=== PATIENT | male | born 1935 | race Two or more races ===

== ENCOUNTER 2023-08-26 22:25 | Inpatient (IN) | payer OTHER ==
[~2023-08-26] VITALS: Ht 167.6 cm; Wt 57.0 kg
[2023-08-26 22:45] VITALS: PULSE 102; RESP 18; O2SAT 99
[2023-08-26 23:23] LABS: Basophils # (auto) 0.1 10 ^3/uL (0-0.2); Hemoglobin 12.9 g/dL (13.5-17.5); Monocytes # (auto) 0.7 10 ^3/uL (0-1.3); Neutrophils # (auto) 7.7 10 ^3/uL (1.6-8.6)
[2023-08-26 23:25] LABS: Basophils % (auto) 1.2 % (0.0-2.0); Eosinophils # (auto) 0.1 10 ^3/uL (0-0.8); Eosinophils % (auto) 1.4 % (0.0-7.0); Hematocrit 37.1 % (41.0-53.0); Lymphocytes # (auto) 1.2 10 ^3/uL (0.4-5.4); Lymphocytes % (auto) 12.3 % (10.0-50.0); Mean Corpuscular Hemoglobin 32.1 pg (28.0-32.0); Mean Corpuscular Hgb Conc. 34.8 g/dL (32.0-36.0); Mean Corpuscular Volume 92.2 fL (80.0-100.0); Monocytes % (auto) 6.8 % (0.0-12.0); Neutrophils % (auto) 78.3 % (37.0-80.0); Red Blood Cells 4.02 10^6/uL (4.5-5.90); Red Cell Distribution Width 13.6 % (11.8-14.3); White Blood Cell 9.9 10^3/uL (4.4-10.8)
[2023-08-26 23:42] LABS: Alanine Aminotransferase 43 U/L (7-40); Albumin 3.4 g/dL (3.2-4.8); Alkaline Phosphatase 96 U/L (46-116); Anion Gap 9 (5-15); Aspartate Aminotransferase 28 U/L (13-40); Blood Alcohol 3.2 mg/dL (<10); Blood Urea Nitrogen 29 mg/dL (9-23); Calcium 8.7 mg/dL (8.5-10.1); Carbon Dioxide 23 mmol/L (20-30); Chloride 108 mmol/L (98-107); Glucose 90 mg/dL (74-106); Sodium 140 mmol/L (136-145)
[2023-08-26 23:43] LABS: Total Protein 5.7 g/dL (5.7-8.2)
[2023-08-27] MEDS: ENOXAPARIN SOD 40 MG/0.4 ML SYRINGE SC ONE (01:17)
[2023-08-27] MEDS: LORazepam 2MG/ML-1ML VIAL ONE (02:28)
[2023-08-27] MEDS: LORazepam 2MG/ML-1ML VIAL IV ONE (02:41)
[2023-08-27] MEDS: IOHEXOL 350 MG/ML 100ML IJ ONE (03:04)
[2023-08-27 08:00] VITALS: PULSE 55; RESP 12; O2SAT 99
[2023-08-27] MEDS ORDERED: DOCUSATE SOD 100 MG CAP PO PRN (10:45)
[2023-08-27] MEDS: ENOXAPARIN SOD 40 MG/0.4 ML SYRINGE SC SCH (11:46)
[2023-08-27] MEDS: SODIUM CHLORIDE 0.9% 1,000 ML IV SCH (11:46)
[2023-08-27 14:02] LABS: Urine Bacteria None Seen /hpf (None Seen)
[2023-08-27 14:21] LABS: Urine Blood 2+ /uL (Negative); Urine Clarity Clear (Clear); Urine Color Yellow (Yellow); Urine Mucus FEW (None Seen); Urine Protein, UAD TRACE (Negative); Urine Urobilinogen Normal (Negative); Urine WBC 10 /hpf (0 - 3); Urine pH 5.5 (5.0-9.0)
[2023-08-27 14:23] LABS: Urine Specific Gravity > 1.050 (1.001-1.035)
[2023-08-27 19:30] VITALS: PULSE 70; RESP 19; O2SAT 100
[2023-08-27] MEDS: PIPERACILLIN-TAZOB 3.375GM 100 ML IV ONE (20:22)
[2023-08-27] MEDS: LORazepam 2MG/ML-1ML VIAL IV PRN (23:28)
[2023-08-28] MEDS: MELATONIN 5 MG TAB PO SCH (00:43)
[2023-08-28 04:45] LABS: Basophils # (auto) 0.1 10 ^3/uL (0-0.2); Eosinophils # (auto) 0.2 10 ^3/uL (0-0.8); Hemoglobin 12.3 g/dL (13.5-17.5); Lymphocytes % (auto) 8.9 % (10.0-50.0); Monocytes # (auto) 0.7 10 ^3/uL (0-1.3)
[2023-08-28 04:46] LABS: Basophils % (auto) 0.9 % (0.0-2.0); Eosinophils % (auto) 1.9 % (0.0-7.0); Hematocrit 36.8 % (41.0-53.0); Mean Corpuscular Hemoglobin 31.4 pg (28.0-32.0); Mean Corpuscular Hgb Conc. 33.3 g/dL (32.0-36.0); Mean Corpuscular Volume 94.3 fL (80.0-100.0); Neutrophils # (auto) 9.3 10 ^3/uL (1.6-8.6); Neutrophils % (auto) 82.3 % (37.0-80.0); Nucleated Red Blood Cells % 0.1 %; Red Cell Distribution Width 14.1 % (11.8-14.3); White Blood Cell 11.3 10^3/uL (4.4-10.8)
[2023-08-28 05:02] LABS: Alanine Aminotransferase 37 U/L (7-40); Albumin 3.1 g/dL (3.2-4.8); Alkaline Phosphatase 92 U/L (46-116); Aspartate Aminotransferase 22 U/L (13-40); BUN/Creatinine Ratio 21.2 (10.0-20.0); Blood Urea Nitrogen 22 mg/dL (9-23); Calcium 8.4 mg/dL (8.7-10.4); Carbon Dioxide 18 mmol/L (20-30); Glucose 87 mg/dL (74-106)
[2023-08-28 05:03] LABS: Bilirubin, Total 0.9 mg/dL (0.2-1.0); Total Protein 5.4 g/dL (5.7-8.2)
[2023-08-28 05:20] LABS: Anion Gap 13 (5-15); Chloride 108 mmol/L (98-107); Potassium 4.1 mmol/L (3.5-5.1); Sodium 139 mmol/L (136-145)
[2023-08-28] MEDS: PIPERACILLIN-TAZOB 3.375GM 100 ML IV SCH (05:32)
[2023-08-28 07:35] VITALS: PULSE 57; RESP 15; O2SAT 100
[2023-08-28 12:00] VITALS: BP 135/97; PULSE 59; RESP 18; TEMP 97.8; O2SAT 99
[2023-08-28] MEDS ORDERED: APIX2.5T PO (16:05)
[2023-08-28] MEDS ORDERED: FINA5TAB4 PO (16:05)
[2023-08-28] MEDS ORDERED: CHOL400C7 PO (16:05)
[2023-08-28] MEDS ORDERED: LISI20TA56 PO (16:05)
[2023-08-28] MEDS ORDERED: HYDR-2792 PO (16:05)
[2023-08-28] MEDS ORDERED: ATOR20TA50 PO (16:05)
[2023-08-28] MEDS ORDERED: LEVO50TA7 PO (16:05)
[2023-08-28] MEDS ORDERED: TAMS0.4C36 PO (16:05)
[2023-08-28 17:00] VITALS: BP 151/75; PULSE 71; RESP 18; TEMP 97.5; O2SAT 100
[2023-08-28] MEDS ORDERED: ACETAMINOPHEN 650 mg PER 20.3 mL UD PO PRN (19:00)
[2023-08-28 20:00] VITALS: PULSE 81; RESP 16; TEMP 36.4
[2023-08-28] MEDS: HALOPERIDOL LACTATE 5 MG/ML INJ VIAL IM PRN (20:45)
[2023-08-28 22:00] VITALS: BP 154/60; PULSE 85; RESP 16; O2SAT 98
[2023-08-28] MEDS: diphenhdrAMINE HCL 50 MG/1 ML VL IM PRN (23:26)
[2023-08-29 07:21] LABS: Chloride 111 mmol/L (98-107); Potassium 3.8 mmol/L (3.5-5.1); Sodium 140 mmol/L (136-145)
[2023-08-29 07:22] LABS: Anion Gap 9 (5-15); Carbon Dioxide 20 mmol/L (20-30)
[2023-08-29 07:23] LABS: Calcium 8.5 mg/dL (8.7-10.4)
[2023-08-29 07:28] LABS: BUN/Creatinine Ratio 16.5 (10.0-20.0); Blood Urea Nitrogen 18 mg/dL (9-23); Glucose 96 mg/dL (74-106)
[2023-08-29 07:29] LABS: Basophils # (auto) 0.1 10 ^3/uL (0-0.2); Basophils % (auto) 0.6 % (0.0-2.0); Eosinophils # (auto) 0.1 10 ^3/uL (0-0.8); Hematocrit 33.8 % (41.0-53.0); Hemoglobin 11.3 g/dL (13.5-17.5); Lymphocytes # (auto) 0.8 10 ^3/uL (0.4-5.4); Mean Corpuscular Hemoglobin 31.9 pg (28.0-32.0); Mean Corpuscular Hgb Conc. 33.5 g/dL (32.0-36.0); Mean Corpuscular Volume 95.2 fL (80.0-100.0); Monocytes # (auto) 0.6 10 ^3/uL (0-1.3); Monocytes % (auto) 6.9 % (0.0-12.0); Neutrophils # (auto) 6.7 10 ^3/uL (1.6-8.6); Neutrophils % (auto) 81.5 % (37.0-80.0); Red Blood Cells 3.55 10^6/uL (4.5-5.90); White Blood Cell 8.2 10^3/uL (4.4-10.8)
[2023-08-29 08:10] VITALS: PULSE 59
[2023-08-29 09:00] VITALS: BP 137/61; PULSE 120; RESP 15; TEMP 97.8; O2SAT 98
[2023-08-29 13:00] VITALS: BP 138/70; PULSE 67; RESP 15; TEMP 98; O2SAT 99
[2023-08-29 16:55] VITALS: BP 147/76; PULSE 65; RESP 15; TEMP 97.8; O2SAT 100
[2023-08-29 20:00] VITALS: BP 141/76; PULSE 65; PULSE 87; RESP 16; TEMP 97.8; O2SAT 100
[2023-08-29 21:47] VITALS: BP 160/77; PULSE 87; RESP 18; TEMP 98.9; O2SAT 96
[2023-08-30] VITALS (8 sets, daily range): BP systolic 125–150; BP diastolic 73–86; PULSE 66–86; RESP 16–19; TEMP 37.3; O2SAT 94–97
[2023-08-30] MEDS ORDERED: VANCOMYCIN PER PHARMACY 0 MG IV SCH (10:00)
[2023-08-30] MEDS: VANCOMYCIN 1GM/200ML 200 ML IV ONE (11:45)
[2023-08-30] MEDS: MORPHINE SULFATE INJ 2 MG/ml SYRG IV PRN (11:47)
[2023-08-30] MEDS: ONDANSETRON HCL 4 MG/2 ML VIAL IV PRN (11:47)
[2023-08-31] MEDS ORDERED: VANCOMYCIN 1GM/200ML 200 ML IV SCH (06:00)
== END 2023-08-30 16:35 | disposition short-term general hospital (02) | DRG 871 ==
LOC: ER 22:25 → EDBD 22:25 → TELE 08-27 10:40 → TELE-CENTR 08-28 11:33 → UNDODISIN 08-30 16:36
PROVIDERS: ADMIT Internal Medicine; ATTEND Internal Medicine
DX: A41.9 Sepsis, unspecified organism (principal); G92.8 Other toxic encephalopathy; L02.415 Cutaneous abscess of right lower limb; M00.9 Pyogenic arthritis, unspecified; D64.9 Anemia, unspecified; Z96.641 Presence of right artificial hip joint; M81.0 Age-related osteoporosis without current pathological fracture; I10 Essential (primary) hypertension; D75.839 Thrombocytosis, unspecified; E03.9 Hypothyroidism, unspecified; N40.0 Benign prostatic hyperplasia without lower urinary tract symptoms; Z74.01 Bed confinement status; Z85.828 Personal history of other malignant neoplasm of skin; Z87.891 Personal history of nicotine dependence
CPT/HCPCS: 36415; 70450; 71045; 71275; 73700; 80048; 80053; 80320; 81001; 83605; 84484; 85025; 85379; 96372; 96374; G0378; J2405; J2543